=== PATIENT | female | born 1990 | race Caucasian/White ===

== ENCOUNTER 2017-01-28 22:31 | Emergency (ER) | payer OTHER ==
[2017-01-28 22:00] LABS: BASO % 0.3 % (0-2); EOS % 11.2 % (0-7); HCT-HEMATOCRIT 40.5 % (34.0-49.0); HGB-HEMOGLOBIN 13.7 gm/dl (12.0-15.5); IMMATURE GRANULOCYTES ABSOLUTE 0.02 tho/cmm (0-0.03); IMMATURE GRANULOCYTES PERCENT 0.2 % (0-0.3); LYMPH % 31.2 % (20-45); LYMPH ABSOLUTE COUNT 2.9 tho/cmm (0.8-4.5); MCH (MEAN CORPUSCULAR HGB) 30.4 pg (28.0-32.0); MCHC MEAN CORPUSCULAR HGB CONC 33.8 % (32.0-36.0); MEAN PLATELET VOLUME 9.7 cmc (9.4-12.4); MONO % 10.6 % (0-12); NEUTROPHIL ABSOLUTE COUNT 4.3 tho/cmm (1.6-8.0); NEUTROPHIL-AUTOMATED 4.3 tho/cmm (1.6-8.0); NEUTROPHILS % 46.5 % (40-80); PLATELET COUNT 252 tho/cmm (150-450); WHITE BLOOD COUNT 9.2 tho/cmm (4.0-10.0)
[2017-01-28 22:18] LABS: ANION GAP 12 mmol/L (0-20); BLOOD UREA NITROGEN 15 mg/dl (6-24); CALCIUM 8.6 mg/dl (8.5-10.5); CARBON DIOXIDE-VENOUS 25 mmol/L (22-32); CHLORIDE 108 mmol/l (96-110); GLUCOSE 107 mg/dL (70-110); POTASSIUM 3.6 mmol/L (3.7-5.1); SODIUM 141 mmol/L (135-145); eGFR VALUE FOR BLACK >90 mL/Min
[2017-01-28 22:30] LABS: URINE BILIRUBIN NEGATIVE (NEG); URINE BLOOD NEGATIVE (NEG); URINE GLUCOSE (UA) NEGATIVE (NEG); URINE KETONE NEGATIVE (NEG); URINE LEUKOCYTE ESTERASE NEGATIVE (NEG); URINE NITRITE NEGATIVE (NEG); URINE PROTEIN NEGATIVE (NEG)
[~2017-01-28 22:31] MED LIST: ALBUTEROL17 GM; ALBUTEROL17 GM INH; BACTRIM DS TABL1 TAB PO; BENADRYL25 M3 PO; CLARITIN10 M4 PO; CLARITIN10 M6 PO; CLARITIN10 MG PO; CLINDAMYCIN HC300 MG PO; DECADRON4 MG PO; DEPO-PROVERA IM; DIFLUCAN150 MG PO; EPIPEN 2-P0.3 MG/0.3 IJ; EPIPEN 2-P0.3 MG/0.3 IM; FLEXERIL10 MG PO; KEFLEX500 M4 PO; MOTRIN IB200 MG PO; MOTRIN200 MG/TAB PO; MOTRIN600 MG PO; MOTRIN800 MG PO; OPCON-A EYE DRO15 M1 OP; PERCOCET 5/3251 TAB PO; PERCOCET 5MG/AP1 TA2 PO; PHENTERMINE HCL15 MG PO; PREDNISONE10 MG PO; PREDNISONE20 M1 PO; PRENATAL1 EACH PO; SINGULAIR10 MG; SINGULAIR10 MG PO; SKELAXIN800 M1 PO; TOPAMAX25 M2 PO; TRAMADOL HCL50 MG PO; VENTOLIN HFA18 GM IH; ZITHROMAX250MG Z-PAK PO
[2017-01-28 22:36] LABS: URINE APPEARANCE CLEAR; URINE COLOR YELLOW
[2017-01-28 22:37] LABS: URINE EPITHELIAL CELLS 0-1 /[HPF] (0-10); URINE RBC 0-2 /[HPF] (0-5); URINE WBC 0 /[HPF] (0-5)
== END 2017-01-28 23:20 ==
LOC: EDMED 22:31
PROVIDERS: Emergency Medicine
DX: R51 Headache (principal); R07.9 Chest pain, unspecified; F17.210 Nicotine dependence, cigarettes, uncomplicated; Z98.890 Other specified postprocedural states
CPT/HCPCS: J0780; J1200; J1885; J7030